=== PATIENT | male | born 2000 | race Hispanic/Latino ===

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

== ENCOUNTER 2021-05-29 16:31 | Emergency (ER) | payer MEDICAID ==
[~2021-05-29] VITALS: Ht 177.8 cm; Wt 70.3 kg
[2021-05-29 16:34] VITALS: BP 130/77
== END 2021-05-29 17:27 | disposition home or self-care (01) ==
LOC: EDH 16:31
DX: J06.9 Acute upper respiratory infection, unspecified (principal); R51.9 Headache, unspecified

== ENCOUNTER 2022-06-25 14:34 | Emergency (ER) | payer BC, MEDICAID ==
[~2022-06-25] VITALS: Ht 177.8 cm; Wt 66.7 kg
[2022-06-25 14:36] VITALS: BP 124/86
[2022-06-25] MEDS ORDERED: CIPR-278 PO (16:32)
== END 2022-06-25 17:24 | disposition home or self-care (01) ==
LOC: EDH 14:34
DX: S93.409A Sprain of unspecified ligament of unspecified ankle, initial encounter (principal); Z90.49 Acquired absence of other specified parts of digestive tract; X50.1XXA Overexertion from prolonged static or awkward postures, initial encounter; Y93.89 Activity, other specified; Y92.89 Other specified places as the place of occurrence of the external cause; Y99.8 Other external cause status
CPT/HCPCS: 73610; 73630

== ENCOUNTER 2024-02-18 13:44 | Emergency (ER) | payer OTHER, BC ==
[~2024-02-18] VITALS: Ht 180.3 cm; Wt 77.1 kg
[2024-02-18 14:04] VITALS: O2SAT 98
[2024-02-18 14:16] VITALS: BP 145/62; PULSE 72; RESP 18
[2024-02-18] MEDS ORDERED: AMOX-426 PO (15:01)
[2024-02-18] MEDS: CEFTRIAXONE 1G VIAL IM ONE (15:24)
== END 2024-02-18 15:39 | disposition home or self-care (01) ==
LOC: EDH 13:44
DX: M79.642 Pain in left hand (principal); Z98.890 Other specified postprocedural states; W50.3XXA Accidental bite by another person, initial encounter; Y93.89 Activity, other specified; Y92.89 Other specified places as the place of occurrence of the external cause; Y99.8 Other external cause status
CPT/HCPCS: 99283; 73130; 96372; J0696